=== PATIENT | female | born 1975 | race Hispanic/Latino ===

== ENCOUNTER 2017-11-09 10:19 | Day surgery (SDC) | payer OTHER ==
[2017-11-08 15:48] VITALS: BMI 43.9
--- NOTE | 2017-11-08 17:32 | HP ---
DATE OF ADMISSION: 11/09/2017 REASON FOR ADMISSION: Dysfunctional uterine bleeding with menorrhagia. SCHEDULED PROCEDURE: Hysteroscopy with D&C and endometrial ablation. HISTORY OF PRESENT ILLNESS: Ms. Polk is a 42-year-old female who came to see me in August from the [facility] in [place]. She had dysfunctional uterine bleeding as well as low grade on Pa p smear. Cervical biopsies were benign and endometrial biopsy revealed proliferative endometrium. T he patient is status post BTL and is a G9, P7, AB1. Denies STD history. PAST MEDICAL HISTORY: Significant for hypertension. PAST SURGICAL HISTORY: Tubal ligation. MEDICATION ALLERGIES: None. MEDICATIONS: Iron sulfate and propranolol extended release 60 mg q.24 hours. SOCIAL HISTORY: Denies tobacco, alcohol, IV drug abuse. FAMILY HISTORY: Noncontributory. REVIEW OF SYSTEMS: Noncontributory. PHYSICAL EXAMINATION: VITAL SIGNS: female, 5 feet 3, 248, BMI 44, blood pressure 118/80, pulse 77, respirations 1 8. HEENT: Within normal limits. LUNGS: Clear to auscultation bilaterally. HEART: Regular rhythm. BREASTS: No mass bilaterally. ABDOMEN: Soft and nontender without rebound or guarding. PELVIC: Vulva without lesions. Vagina without discharge. Cervix parous. Uterus was anteverted, so ft, nontender, sounded to 8 cm at EMB. Adnexa without masses bilaterally. EXTREMITIES: Without clubbing, cyanosis or edema. IMPRESSION: Dysfunctional uterine bleeding with menorrhagia with benign endometrial biopsy. PLAN: Discussed with patient option. The patient desires to proceed with and was approved for care by [facility] with hysteroscopy, D&C, and endometrial ablation. The patient risk, elvira efits of the procedure including bleeding, infection, post-ablation syndrome, recurrence of bleeding. She gives verbal and written informed consent for the procedure. We will administer appropriate an tibiotic and DVT prophylaxis at [facility] on 11/09/2017.
[2017-11-09] MEDS ORDERED: Midazolam HCl 2 mg/2 ml Vial ONE (11:28)
[2017-11-09] MEDS ORDERED: Fentanyl 100 MCG/2 ML VIAL ONE (11:28)
[2017-11-09] MEDS ORDERED: Lidocaine 1% (PF) 30 ML VIAL ONE (11:28)
[2017-11-09] MEDS ORDERED: CEFAZOLIN/Water 2 GM/20 ML SYRINGE ONE (11:37)
[2017-11-09] MEDS ORDERED: PROPOFOL 200 MG/20 ML VIAL ONE (11:37)
[2017-11-09] MEDS ORDERED: Dexamethasone 20 MG/5 ML VIAL ONE (11:37)
[2017-11-09] MEDS ORDERED: Ondansetron HCl/PF 4 MG/2 ML Vial ONE (11:37)
[2017-11-09] MEDS ORDERED: Lidocaine 1% PF 5 ML VIAL ONE (11:37)
[2017-11-09] MEDS ORDERED: Ferric Subsulfate 8 ML BOT ONE (12:18)
--- NOTE | 2017-11-09 13:50 | OP ---
DATE OF PROCEDURE: 11/09/2017 PREOPERATIVE DIAGNOSES: Menorrhagia with benign endometrial biopsy. POSTOPERATIVE DIAGNOSES: Menorrhagia with benign endometrial biopsy. PROCEDURE: Hysteroscopy with Phyllis endometrial ablation. SURGEON: Jayy Padilla M.D. ANESTHESIA: General endotracheal. ESTIMATED BLOOD LOSS: Less than 25 mL. COMPLICATIONS: None. OPERATIVE FINDINGS: 1. Pre and post-sound 8.5-9 cm. 2. Minimal fluid deficit. 3. Global endometrial ablation with Phyllis. 4. Correct counts of the end of the procedure. DISPOSITION: To the recovery room in good condition. DESCRIPTION OF OPERATIVE PROCEDURE: After obtaining proper informed consent, the patient was taken t o the operating room. Anesthesia was achieved without difficulty. The patient prepped and draped in dorsal lithotomy in Pollo stirrups. Weighted speculum placed in the vagina after the bladder had be en drained of clear urine. Cervix was identified, grasped at 12 o'clock with single tooth tenaculum. Uterus sounded to 8-9 cm was serially dilated to appropriate level for hysteroscopy and for Phyllis ablation device. The 0 degree hysteroscope was introduced and photodocumentation of a normal appear ing uterine cavity without polyps, fibroids and with normal tubal ostia bilaterally was achieved. Th e hysteroscope was removed. The Phyllis device was set for a 5.5 cm cavity length, it was placed and the cavity integrity test revealed an intact cavity x2. The therapy cycle was carried out for 120 s econds. Phyllis device was removed and hysteroscopy afterwards revealed no evidence of perforation, good global ablation and no other abnormalities noted. Hysteroscope was removed, tenaculum removed. The anterior lip of the cervix was bleeding, but this resolved with application of Monsel's and appr oximately 60 seconds of pressure. The weighted speculum was removed and the patient was awakened, ex tubated, and taken to the recovery room in good condition.
== END 2017-11-09 14:45 ==
LOC: SDC 10:19 → EEVIPCON 10:19 → SDC 14:45
PROVIDERS: ATTEND Obstetrics & Gynecology
PROC: 0UDB8ZX Extraction of Endometrium, Via Natural or Artificial Opening Endoscopic, Diagnostic (ICD-10-PCS; principal; 2017-11-09)
PROC: 0U5B8ZZ Destruction of Endometrium, Via Natural or Artificial Opening Endoscopic (ICD-10-PCS; principal; 2017-11-09)
DX: N93.8 Other specified abnormal uterine and vaginal bleeding (principal); N92.0 Excessive and frequent menstruation with regular cycle; I10 Essential (primary) hypertension; Z79.899 Other long term (current) drug therapy; Z98.51 Tubal ligation status
CPT/HCPCS: 36415; 86850; 86900; 86901; J1100; J2001; J2250; J2405; J2704; J3010